=== PATIENT | female | born 1990 | race Caucasian/White ===

== ENCOUNTER → 2024-11-15 14:25 | Outpatient (REF) | payer OTHER, SELFPAY | LOC: RAD 14:25 | PROVIDERS: ATTENDING PHYSICIAN Nurse Practitioner Family; FAMILY PHYSICIAN Family Medicine | DX: Z34.00 Encounter for supervision of normal first pregnancy, unspecified trimester (principal) | CPT/HCPCS: 76801 ==

== ENCOUNTER → 2024-12-09 15:02 | Outpatient (REF) | payer OTHER, SELFPAY | LOC: RAD 15:02 | PROVIDERS: ATTENDING PHYSICIAN Nurse Practitioner Family | DX: O26.859 Spotting complicating pregnancy, unspecified trimester (principal) | CPT/HCPCS: 76801 ==

== ENCOUNTER → 2024-12-17 11:18 | Outpatient (REF) | payer OTHER, SELFPAY | LOC: PNTC 11:18 | PROVIDERS: ATTENDING PHYSICIAN Student in an Organized Health Care Education/Training Program | DX: Z36.0 Encounter for antenatal screening for chromosomal anomalies (principal); Z36.82 Encounter for antenatal screening for nuchal translucency | CPT/HCPCS: 76801; 76813 ==

== ENCOUNTER → 2025-01-02 10:52 | Outpatient (REF) | payer OTHER, SELFPAY | LOC: RAD 10:52 | PROVIDERS: ATTENDING PHYSICIAN Student in an Organized Health Care Education/Training Program; FAMILY PHYSICIAN Family Medicine | DX: O26.859 Spotting complicating pregnancy, unspecified trimester (principal) | CPT/HCPCS: 76801 ==

== ENCOUNTER → 2025-01-09 14:48 | Outpatient (REF) | payer OTHER, SELFPAY | LOC: PNTC 14:48 | PROVIDERS: ATTENDING PHYSICIAN Student in an Organized Health Care Education/Training Program | DX: Z86.32 Personal history of gestational diabetes (principal); O36.5990 Maternal care for other known or suspected poor fetal growth, unspecified trimester, not applicable or unspecified | CPT/HCPCS: 76805 ==

== ENCOUNTER → 2025-02-11 13:16 | Outpatient (REF) | payer OTHER, SELFPAY | LOC: PNTC 13:16 | PROVIDERS: ATTENDING PHYSICIAN Student in an Organized Health Care Education/Training Program | DX: O24.419 Gestational diabetes mellitus in pregnancy, unspecified control (principal); O36.5990 Maternal care for other known or suspected poor fetal growth, unspecified trimester, not applicable or unspecified | CPT/HCPCS: 76811; 76817 ==

== ENCOUNTER → 2025-03-11 07:44 | Outpatient (REF) | payer OTHER, SELFPAY | LOC: PNTC 07:44 | PROVIDERS: ATTENDING PHYSICIAN Student in an Organized Health Care Education/Training Program; OTHER PHYSICIAN Obstetrics & Gynecology | DX: O44.42 Low lying placenta NOS or without hemorrhage, second trimester (principal); O99.612 Diseases of the digestive system complicating pregnancy, second trimester | CPT/HCPCS: 76816 ==

== ENCOUNTER → 2025-05-05 09:19 | Outpatient (REF) | payer OTHER, SELFPAY | LOC: PNTC 09:19 | PROVIDERS: ATTENDING PHYSICIAN Student in an Organized Health Care Education/Training Program | DX: O99.613 Diseases of the digestive system complicating pregnancy, third trimester (principal); O09.529 Supervision of elderly multigravida, unspecified trimester | CPT/HCPCS: 76816 ==

== ENCOUNTER → 2025-06-02 10:49 | Outpatient (REF) | payer OTHER, SELFPAY | LOC: PNTC 10:49 | PROVIDERS: ATTENDING PHYSICIAN Student in an Organized Health Care Education/Training Program | DX: O99.613 Diseases of the digestive system complicating pregnancy, third trimester (principal); O09.523 Supervision of elderly multigravida, third trimester; Z87.59 Personal history of other complications of pregnancy, childbirth and the puerperium; Z86.32 Personal history of gestational diabetes | CPT/HCPCS: 36415; 76816 ==

== ENCOUNTER 2025-06-21 03:34 | Observation (INO) | payer OTHER, SELFPAY ==
[2025-06-21 03:48] VITALS: BMI 30.4
[2025-06-21 03:53] VITALS: BP 131/81
[2025-06-21] MEDS: LR 1000 IV (04:27)
[2025-06-21 04:56] LABS: Hematocrit 39.3 % (37.0-47.0); Hemoglobin 13.4 g/dL (12.0-16.0); Mean Corp Hgb Conc. 34.1 g/dL (33.0-37.0); Mean Corpuscular Volume 94.0 fL (81.0-99.0); Nucleated Red Blood Cells % 0 %; Platelet Count 263 10^3/uL (130-400); Red Cell Dist. Width 14.2 % (11.5-14.5)
[2025-06-21 05:17] LABS: ALT (SGPT) 15 U/L (0-35); AST (SGOT) 18 U/L (14-36); Albumin 3.4 g/dl (3.5-5.0); Alkaline Phosphatase 81 U/L (38-126); Blood Urea Nitrogen 14 mg/dl (7-17); Calcium 9.6 mg/dl (8.4-10.2); Carbon Dioxide 20 mmol/L (22-30); Chloride 106 mmol/L (98-107); Estimated Creatinine Clearance > 125 ml/min; Glucose 93 mg/dl (70-99); Potassium 4.2 mmol/L (3.5-5.1); Sodium 133 mmol/L (135-145); Total Protein 6.3 g/dl (6.3-8.2); eGFR > 60.00
== END 2025-06-21 07:35 | disposition home or self-care (01) ==
LOC: LDRP 03:34
PROVIDERS: ADMITTING PHYSICIAN Obstetrics & Gynecology; FAMILY PHYSICIAN Family Medicine
DX: O47.1 False labor at or after 37 completed weeks of gestation (principal); Z3A.39 39 weeks gestation of pregnancy; Z88.0 Allergy status to penicillin
CPT/HCPCS: 36415; 80053; 85025; 86850; 86900; 86901; G0378

== ENCOUNTER 2025-06-25 08:57 | Inpatient (IN) | payer OTHER, SELFPAY ==
[2025-06-25 09:38] LABS: Hematocrit 39.3 % (37.0-47.0); Hemoglobin 13.5 g/dL (12.0-16.0); Mean Corp Hgb Conc. 34.4 g/dL (33.0-37.0); Mean Corpuscular Volume 93.1 fL (81.0-99.0); Platelet Count 262 10^3/uL (130-400); Red Cell Dist. Width 14.2 % (11.5-14.5)
[2025-06-25 10:02] VITALS: BP 145/95; BMI 30.4
[2025-06-25] MEDS: TYLENOL 975 MG PO (11:51)
[2025-06-25] MEDS: BICITRA 30 ML PO (11:52)
[2025-06-25] MEDS: ANCEF 10 IV (11:52)
[2025-06-25] MEDS: TORADOL 15 MG IV (18:01)
[2025-06-25] MEDS: COLACE 100 MG PO (19:46)
[2025-06-25] MEDS: PRENATAL PLUS 1 TABLET PO (21:55)
[2025-06-26] MEDS: TORADOL 15 MG IV ×3 (00:03→12:16)
[2025-06-26 04:27] LABS: Hematocrit 32.5 % (37.0-47.0); Hemoglobin 11.3 g/dL (12.0-16.0); Mean Corp Hgb Conc. 34.8 g/dL (33.0-37.0); Mean Corpuscular Volume 94.5 fL (81.0-99.0); Platelet Count 212 10^3/uL (130-400); Red Cell Dist. Width 14.2 % (11.5-14.5)
[2025-06-26] MEDS: COLACE 100 MG PO ×2 (09:18→20:04)
--- NOTE | 2025-06-26 11:08 | W.PN.ANS.POP ---
Anesthesia Post Operative
- Anesthesia Post Op Note
Vital Signs Stable-See Nursing Note: Yes
Airway Patent: Yes
Adequate Pain Control: Yes
Change in Mental Status: No
Current Postoperative Nausea & Vomiting: No
Anesthesia Complications: No
General Anesthetic Recall: No
Unplanned Admission: No
Post Op Hydration Adequate: Yes
[2025-06-26] MEDS: MOTRIN 600 MG PO (18:31)
[2025-06-26] MEDS: TYLENOL 650 MG PO (18:32)
[2025-06-26] MEDS: PRENATAL PLUS 1 TABLET PO (21:50)
[2025-06-27] MEDS: TYLENOL 650 MG PO ×3 (00:47→13:39)
[2025-06-27] MEDS: MOTRIN 600 MG PO ×3 (00:47→13:38)
[2025-06-27] MEDS: COLACE 100 MG PO (07:38)
[2025-06-27 12:57] LABS: Syphilis/T. pallidum Ab Reflex Negative (Negative)
--- NOTE | 2025-06-27 14:43 | W.DS.TRANS ---
DC Summary - Store Receiving Clerk
-
Discharge Instructions:
Discharge Diagnosis/Procedures 39.6 wks; prior LTCS; elective repeat
LTCS
Diet Regular
Activity No strenuous activity
Driving Restrictions No driving for 2 weeks
Bathing Restrictions OK to Shower
Instructions:
Stand-Alone Forms: LDRP Delivery
LDRP Hypertensive Disorders
Changes to Home Medications: No
Discharge Medications:
DC Medications w/original date entered in [facility]
prenat.vits,zander,mah-bncd-debsa 1 tab PO QHS Supplement 06/21/25
acetaminophen 325 mg tablet 650 mg (2 x 325 mg) PO Q4HPRN PRN mild pain #0 tabs 06/27/25
ibuprofen 600 mg tablet 600 mg PO Q6HPRN PRN cramps #0 tabs 06/27/25
Home Medication Changes
Pending Results: No
Total time spent discharging patient (in min): 20
== END 2025-06-27 15:36 | disposition home or self-care (01) | DRG 788 ==
LOC: LDRP 08:57
PROVIDERS: ADMITTING PHYSICIAN Obstetrics & Gynecology
PROC: 10D00Z1 Extraction of Products of Conception, Low, Open Approach (ICD-10-PCS; 2025-06-25)
DX: O34.211 Maternal care for low transverse scar from previous cesarean delivery (principal); N85.8 Other specified noninflammatory disorders of uterus; Z3A.39 39 weeks gestation of pregnancy; Z37.0 Single live birth; Q51.28 Other and unspecified doubling of uterus; O34.03 Maternal care for unspecified congenital malformation of uterus, third trimester
CPT/HCPCS: 85027; 86780; 86850; 86900; 86901